=== PATIENT | female | born 1970 | race Two or more races ===

== ENCOUNTER 2024-06-22 07:00 | Inpatient (IN) | payer OTHER ==
[~2024-06-22] VITALS: Ht 162.6 cm; Wt 136.1 kg
[~2024-06-22 07:00] MED LIST: DICLOFENAC SODI50 MG PO; HYDRALAZINE HCL25 MG PO; LOSARTAN POTAS100 MG PO
[2024-06-22 08:15] LABS: URINE APPEARANCE Clear; URINE BILIRRUBIN Negative (NEGATIVE); URINE BLOOD Large; URINE COLOR Yellow; URINE KETONE Negative (NEGATIVE); URINE LEUKOCYTE Negative; URINE NITRATE Negative; URINE PROTEIN Negative (NEGATIVE); URINE UROBILINOGEN 0.2 E.U./dl
[2024-06-22 08:16] LABS: HEMATOCRIT 40.9 % (36.0-45.00); HEMOGLOBIN 13.9 g/dL (12.0-15.00); MEAN CELL VOLUME 82.7 fL (80.00-100.00); MEAN CORPUSCULAR HEMOGLOBIN 28.2 pg (27.00-32.0); MEAN CORPUSCULAR HGB CONC 34.1 g/dl (32.0-36.0); PLATELET COUNT 136 K/uL (150-450); RED BLOOD COUNT 4.95 M/uL (4.00-6.00); RED CELL DISTRIBUTION WIDTH 14.3 % (11.5-14.5); URINE BACTERIA 54.1 uL (0.0-1933); URINE RBC 322.2 uL (0.0-20.8); URINE WBC 2.9 uL (0.0-23.2)
[2024-06-22 08:27] LABS: URINE GLUCOSE >=1000 MG/DL (NEGATIVE)
[2024-06-22 08:38] LABS: INR < 0.93; PROTHROMBIN TIME 9.6 SECONDS (9.0-11.5)
[2024-06-22 08:43] LABS: ALBUMIN 3.6 gm/dL (3.4-5.0); BILIRUBIN TOTAL 1.02 mg/dL (0.3-1.2); CALCIUM 9.4 mg/dL (8.5-10.1); CREATININE SERUM 0.72 mg/dL (0.55-1.02); GFR 84.41; GLOBULINA 3.8 G/DL (2.4-3.5); TOTAL PROTEIN 7.4 gm/dL (6.4-8.2)
[2024-06-22] MEDS ORDERED: CEFAZOLIN SODIUM 1,000 MG VIAL IV SCH (08:45)
[2024-06-29] MEDS ORDERED: CEFAZOLIN SODIUM 1,000 MG VIAL IV ONE (08:15)
[2024-06-29] MEDS ORDERED: POVIDONE-IODINE 118 ML BOTT TOP ONE (08:15)
[2024-06-29] MEDS ORDERED: MORPHINE SULFATE 4 MG/ML VIAL IV SCH (08:45)
[2024-06-29] MEDS ORDERED: BUPIVACAINE HCL 30 ML VIAL IJ SCH (08:45)
[2024-06-29] MEDS ORDERED: ISOPROPYL ALCOHOL 30 ML OUNCE TOP SCH (08:45)
[2024-06-29] MEDS ORDERED: LIDOCAINE HCL 1% 10ML VIAL IJ SCH (08:45)
[2024-06-29] MEDS ORDERED: KETOROLAC TROMETHAMINE 60 MG VIAL IM SCH (08:45)
[2024-06-29] MEDS ORDERED: TRANEXAMIC ACID 100MG/1ML (1000MG) AMPUL IV SCH ×2 (08:45)
[2024-06-29] MEDS ORDERED: VANCOMYCIN HCL 1,000 MG VIAL IR SCH (08:45)
[2024-06-29] MEDS ORDERED: ONDANSETRON HCL 2 MG/ML VIAL IV PRN (09:15)
[2024-06-29] MEDS ORDERED: OxyCODONE HCL/APAP UD (PERCOCET) PO PRN (09:15)
[2024-06-29] MEDS ORDERED: CEFAZOLIN SODIUM 1,000 MG VIAL IV SCH (12:00)
[2024-06-29] MEDS ORDERED: MORPHINE SULFATE 4 MG/ML CARTRIDGE IV SCH (12:00)
[2024-06-29] MEDS ORDERED: ORPHENADRINE CITRATE 100 MG TABLET PO SCH (21:00)
[2024-06-29] MEDS ORDERED: GABAPENTIN 100 MG CAPSULE PO SCH (21:00)
[2024-06-30 02:03] LABS: HEMATOCRIT 37.4 % (36.0-45.00); HEMOGLOBIN 12.5 g/dL (12.0-15.00); MEAN CELL VOLUME 82.2 fL (80.00-100.00); MEAN CORPUSCULAR HEMOGLOBIN 27.4 pg (27.00-32.0); MEAN CORPUSCULAR HGB CONC 33.3 g/dl (32.0-36.0); PLATELET COUNT 137 K/uL (150-450); RED BLOOD COUNT 4.55 M/uL (4.00-6.00); RED CELL DISTRIBUTION WIDTH 14.3 % (11.5-14.5)
[2024-06-30] MEDS ORDERED: ENOXAPARIN SODIUM 30 MG/0.3 ML SYRINGE SUBCUTANEO SCH (09:00)
[2024-07-01 01:31] LABS: HEMOGLOBIN 12.2 g/dL (12.0-15.00); MEAN CELL VOLUME 83.6 fL (80.00-100.00); MEAN CORPUSCULAR HEMOGLOBIN 27.6 pg (27.00-32.0); MEAN CORPUSCULAR HGB CONC 33.1 g/dl (32.0-36.0); RED BLOOD COUNT 4.42 M/uL (4.00-6.00); RED CELL DISTRIBUTION WIDTH 14.2 % (11.5-14.5)
[2024-07-01 01:35] LABS: PLATELET COUNT 126 K/uL (150-450)
[2024-07-01] MEDS ORDERED: XARELTO10 MG PO (12:22)
[2024-07-01] MEDS ORDERED: OXYC1TAB9 PO (12:22)
[2024-07-01] MEDS ORDERED: GABAPENTIN100 MG PO (12:22)
[2024-07-01] MEDS ORDERED: NORFLEX100MG PO (12:23)
[2024-07-01 12:40] LABS: CALCIUM 9.2 mg/dL (8.5-10.1); CREATININE SERUM 0.89 mg/dL (0.55-1.02); GFR 66.09; POTASSIUM 3.88 mEq/L (3.5-5.1)
== END 2024-07-01 13:40 | disposition home or self-care (01) | DRG 470 ==
LOC: O/R 06-29 05:28 → SURH 06-29 07:00 → OB/GYN 06-29 11:01 → SURH 06-29 13:30 → OB/GYN 07-01 13:40
PROVIDERS: ADMIT Orthopaedic Surgery; ATTEND Orthopaedic Surgery
PROC: 0SRC0JZ Replacement of Right Knee Joint with Synthetic Substitute, Open Approach (ICD-10-PCS; principal; 2024-06-29 13:30)
DX: M17.11 Unilateral primary osteoarthritis, right knee (principal); M85.661 Other cyst of bone, right lower leg; I10 Essential (primary) hypertension; E03.9 Hypothyroidism, unspecified